=== PATIENT | female | born 1960 | race Hispanic/Latino ===

== ENCOUNTER → 2017-04-18 | Outpatient (CLI) | payer MEDICARE ==
[~2017-04-18] MED LIST: ALLO100T PO; BISA5TAB12 PO; CHOL200074 PO; CLON0.3T PO; CYCL100C8 PO; ESOM40CA PO; ESTR0.452 PO; FERR325T22 PO; GABA-529 PO; GLIP10TA9 PO; HYDR200T4 PO; INSU100V12 SQ; LABE200T PO; LACT10SO9 PO; LINA290C PO; LISI-613 PO; NIFE30TA98 PO; PRED5TAB PO; ROSU5TAB PO
== END | disposition home or self-care (01) ==
LOC: RAH 08:46
PROVIDERS: ATTEND Internal Medicine Gastroenterology
DX: R13.12 Dysphagia, oropharyngeal phase (principal); R63.3 Feeding difficulties
CPT/HCPCS: G8996; G8997; G8998; 74230; 92611

== ENCOUNTER → 2017-06-07 | Outpatient (CLI) | payer MEDICARE ==
[~2017-06-07] MED LIST changes: -LABE200T PO; +LABE200T5 PO
[2017-06-07 11:14] LABS: BASOPHILS % (AUTO) 0.6 % (0.0-5.0); EOSINOPHILS % (AUTO) 1.7 % (0.0-8.0); HEMATOCRIT 28.4 % (36-48); LYMPHOCYTES % (AUTO) 26.6 % (21.0-51.0); MEAN CORPUSCULAR HEMOGLOBIN 32.9 pg (27.0-33.0); MEAN CORPUSCULAR HGB CONC 34.2 g/dL (32.0-36.0); MEAN CORPUSCULAR VOLUME 96.1 fL (79-99); MONOCYTES % (AUTO) 9.4 % (3.0-13.0); NEUTROPHILS % (AUTO) 61.7 % (40.0-77.0); PLATELET COUNT (AUTO) 300 K/uL (130-400); RED BLOOD CELL COUNT(AUTO) 2.95 MIL/uL (4.00-5.50); RED CELL DISTRIBUTION WIDTH 14.8 % (11.0-15.5)
[2017-06-07 11:23] LABS: ALBUMIN 2.7 g/dL (3.5-5.0); BILIRUBIN,TOTAL 0.2 mg/dL (0.2-1.0); CREATININE 1.7 mg/dL (0.5-1.5); POTASSIUM 3.8 mmol/L (3.5-5.1); TOTAL PROTEIN, SERUM 7.2 g/dL (6.0-8.3)
== END | disposition home or self-care (01) ==
LOC: RAH 10:29
PROVIDERS: ATTEND Internal Medicine
DX: R10.13 Epigastric pain (principal); R14.0 Abdominal distension (gaseous)
CPT/HCPCS: 36415; 78264; 80053; 82150; 83690; 85025; A9541

== ENCOUNTER 2017-07-21 01:34 | Inpatient (IN) | payer MEDICARE ==
[~2017-07-21] VITALS: Ht 152.4 cm; Wt 65.3 kg
[~2017-07-21 01:34] MED LIST changes: -CHOL200074 PO; -CLON0.3T PO; -ESTR0.452 PO; -LABE200T5 PO
[2017-07-21 02:01] LABS: BILIRUBIN,URINE NEGATIVE (NEGATIVE); COLOR,URINE YELLOW (YELLOW); GLUCOSE, URINE (UA) NEGATIVE (NEGATIVE); KETONES,URINE NEGATIVE (NEGATIVE); LEUKOCYTE ESTERASE ,URINE LARGE (NEGATIVE); NITRATE,URINE NEGATIVE (NEGATIVE); OCCULT BLOOD,URINE MODERATE (NEGATIVE); PH,URINE 6.5 (5.0-8.0); PROTEIN,URINE 100 (NEGATIVE); UROBILINOGEN,URINE 0.2 mg/dL (0.2-1.0)
[2017-07-21 02:02] LABS: APPEARANCE,URINE HAZY (CLEAR)
[2017-07-21 02:14] LABS: BACTERIA,URINE Moderate /HPF (None Seen); WBC,URINE TNTC /HPF (0-1)
[2017-07-21 02:41] LABS: BASOPHILS % (AUTO) 0.4 % (0.0-5.0); HEMATOCRIT 29.1 % (36-48); LYMPHOCYTES % (AUTO) 36.5 % (21.0-51.0); MEAN CORPUSCULAR HEMOGLOBIN 33.8 pg (27.0-33.0); MEAN CORPUSCULAR HGB CONC 34.4 g/dL (32.0-36.0); MEAN CORPUSCULAR VOLUME 98.3 fL (79-99); NEUTROPHILS % (AUTO) 54.1 % (40.0-77.0); NUCLEATED RED BLOOD CELLS 0.1 % (0.0-0.19); PLATELET COUNT (AUTO) 188 K/uL (130-400); RED BLOOD CELL COUNT(AUTO) 2.96 MIL/uL (4.00-5.50); RED CELL DISTRIBUTION WIDTH 14.9 % (11.0-15.5); WHITE BLOOD COUNT (AUTO) 7.3 K/uL (4.8-10.8)
[2017-07-21 02:54] LABS: ALBUMIN 2.7 g/dL (3.5-5.0); BILIRUBIN,TOTAL 0.3 mg/dL (0.2-1.0); CREATININE 2.3 mg/dL (0.5-1.5); TOTAL PROTEIN, SERUM 6.9 g/dL (6.0-8.3)
[2017-07-21] MEDS ORDERED: SODIUM CHLORIDE 0.9% 1000ML 1,000 ML IV ONE (03:55)
[2017-07-21] MEDS ORDERED: LEVOFLOXACIN 500 MG/D5W 100 ML 100 ML ONE (03:56)
[2017-07-21] MEDS ORDERED: DEXTROSE 50%-WATER 50 ML DISP.SYRIN IV PRN (05:15)
[2017-07-21] MEDS ORDERED: GLUCAGON 1MG KIT 1 MG ML IM PRN (05:15)
[2017-07-21 05:55] VITALS: BP 205/96
[2017-07-21] MEDS: SODIUM CHLORIDE 0.9% 1000ML 1,000 ML IV SCH ×3 (06:37→23:19)
[2017-07-21] MEDS: HYDRALAZINE HCL 20 MG/ML VIAL IV PRN (06:38)
[2017-07-21] MEDS: INSULIN R PO SS1 SQ SCH ×4 (06:46→21:00)
[2017-07-21 07:00] VITALS: BP 178/75
[2017-07-21] MEDS: PANTOPRAZOLE SODIUM 40 MG TABLET.DR PO SCH (09:07)
[2017-07-21] MEDS: ENOXAPARIN SODIUM 30 MG/0.3 ML SQ SCH (09:09)
[2017-07-21 11:00] VITALS: BP 172/91
[2017-07-21] MEDS: CLONIDINE HCL 0.1 MG TABLET PO PRN (13:42)
[2017-07-21] MEDS: LABETALOL HCL 200 MG TABLET PO SCH ×2 (14:00→23:25)
[2017-07-21] MEDS ORDERED: CHOL200074 PO (14:09)
[2017-07-21] MEDS ORDERED: ESTR0.452 PO (14:09)
[2017-07-21] MEDS ORDERED: LABE200T5 PO (14:09)
[2017-07-21] MEDS ORDERED: CLON0.3T PO (14:09)
[2017-07-21] MEDS ORDERED: PHARMACY COMMUNICATION MISC SCH (14:30)
[2017-07-21] MEDS ORDERED: LABETALOL 20 MG/4 ML DISP.SYRIN IV SCH (14:30)
[2017-07-21] MEDS: CEFTRIAXONE SODIUM 1 GM IVP SCH (15:12)
[2017-07-21 16:00] VITALS: BP 183/95
[2017-07-21] MEDS: LABETALOL HCL 5 MG/ML 20ML VIAL IV PRN (18:12)
[2017-07-21 20:13] VITALS: BP 170/94
[2017-07-21] MEDS: CYCLOSPORINE, MODIFIED 25 MG CAPSULE PO SCH (23:19)
[2017-07-21] MEDS: GABAPENTIN 100 MG CAPSULE PO SCH (23:20)
[2017-07-21] MEDS: ALLOPURINOL 100 MG TABLET PO SCH (23:20)
[2017-07-21] MEDS: HYDROXYCHLOROQUINE SULFATE 200 MG TAB PO SCH (23:21)
[2017-07-21] MEDS: CLONIDINE HCL 0.3 MG TABLET PO SCH (23:22)
[2017-07-21] MEDS: PREDNISONE 5 MG TABLET PO SCH (23:22)
[2017-07-22] VITALS (7 sets, daily range): BP systolic 128–204; BP diastolic 70–104
[2017-07-22] MEDS: LABETALOL HCL 5 MG/ML 20ML VIAL IV PRN (01:14)
[2017-07-22] MEDS: ACETAMINOPHEN 325 MG TAB PO PRN (01:15)
[2017-07-22] MEDS: HYDRALAZINE HCL 20 MG/ML VIAL IV PRN (02:43)
[2017-07-22] MEDS: GLIPIZIDE 5 MG TABLET PO SCH ×2 (06:10→15:10)
[2017-07-22] MEDS: INSULIN R PO SS1 SQ SCH ×4 (06:10→21:00)
[2017-07-22] MEDS: LEVOFLOXACIN 500 MG/D5W 100 ML 100 ML IV SCH (06:10)
[2017-07-22] MEDS ORDERED: HYDRALAZINE HCL 20 MG/ML VIAL IV PRN (06:45)
[2017-07-22 07:04] LABS: HEMATOCRIT 29.9 % (36-48); MEAN CORPUSCULAR HEMOGLOBIN 33.4 pg (27.0-33.0); MEAN CORPUSCULAR HGB CONC 34.3 g/dL (32.0-36.0); MEAN CORPUSCULAR VOLUME 97.4 fL (79-99); PLATELET COUNT (AUTO) 205 K/uL (130-400); RED BLOOD CELL COUNT(AUTO) 3.07 MIL/uL (4.00-5.50); RED CELL DISTRIBUTION WIDTH 15.2 % (11.0-15.5); WHITE BLOOD COUNT (AUTO) 8.5 K/uL (4.8-10.8)
[2017-07-22 07:23] LABS: CREATININE 1.8 mg/dL (0.5-1.5); POTASSIUM 4.1 mmol/L (3.5-5.1)
[2017-07-22 07:38] LABS: CREATINE KINASE MB 1.1 ng/mL (0.5-3.6); TROPONIN I 0.04 ng/mL (0.00-0.06)
[2017-07-22] MEDS: CHOLECALCIFEROL 2000 UNIT PO SCH (09:00)
[2017-07-22] MEDS: LACTULOSE 20 GM/30 ML UDCUP PO SCH (09:00)
[2017-07-22] MEDS: ALLOPURINOL 100 MG TABLET PO SCH ×2 (09:28→21:30)
[2017-07-22] MEDS: CLONIDINE HCL 0.3 MG TABLET PO SCH ×2 (09:28→21:30)
[2017-07-22] MEDS: HYDROXYCHLOROQUINE SULFATE 200 MG TAB PO SCH ×2 (09:29→21:27)
[2017-07-22] MEDS: PREDNISONE 5 MG TABLET PO SCH ×2 (09:29→21:27)
[2017-07-22] MEDS: ENOXAPARIN SODIUM 30 MG/0.3 ML SQ SCH (09:30)
[2017-07-22] MEDS: PANTOPRAZOLE SODIUM 40 MG TABLET.DR PO SCH (09:32)
[2017-07-22] MEDS: LABETALOL HCL 200 MG TABLET PO SCH ×3 (09:37→21:28)
[2017-07-22] MEDS: CYCLOSPORINE, MODIFIED 25 MG CAPSULE PO SCH ×2 (09:37→21:31)
[2017-07-22] MEDS: SODIUM CHLORIDE 0.9% 1000ML 1,000 ML IV SCH ×2 (09:39→15:16)
[2017-07-22] MEDS: CEFTRIAXONE SODIUM 1 GM IVP SCH (15:03)
[2017-07-22] MEDS ORDERED: CEFEPIME 1GM+NS 50ML 50 ML IV SCH (19:00)
[2017-07-22] MEDS: CEFEPIME HCL 1 GM VIAL IVP SCH (21:27)
[2017-07-22] MEDS: GABAPENTIN 100 MG CAPSULE PO SCH (21:28)
[2017-07-23] VITALS (7 sets, daily range): BP systolic 171–200; BP diastolic 87–97
[2017-07-23] MEDS: SODIUM CHLORIDE 0.9% 1000ML 1,000 ML IV SCH ×4 (00:29→20:23)
[2017-07-23] MEDS: LABETALOL HCL 5 MG/ML 20ML VIAL IV PRN ×3 (00:29→23:41)
[2017-07-23] MEDS: ACETAMINOPHEN 325 MG TAB PO PRN (02:44)
[2017-07-23 04:56] LABS: HEMATOCRIT 28.6 % (36-48); MEAN CORPUSCULAR HEMOGLOBIN 34.5 pg (27.0-33.0); MEAN CORPUSCULAR HGB CONC 35.2 g/dL (32.0-36.0); MEAN CORPUSCULAR VOLUME 97.9 fL (79-99); NUCLEATED RED BLOOD CELLS 0.1 % (0.0-0.19); PLATELET COUNT (AUTO) 203 K/uL (130-400); RED BLOOD CELL COUNT(AUTO) 2.92 MIL/uL (4.00-5.50); RED CELL DISTRIBUTION WIDTH 15.5 % (11.0-15.5); WHITE BLOOD COUNT (AUTO) 7.8 K/uL (4.8-10.8)
[2017-07-23 05:12] LABS: CREATININE 1.8 mg/dL (0.5-1.5); MAGNESIUM 1.6 mg/dL (1.80-2.40); PHOSPHORUS 3.7 mg/dL (2.5-4.9)
[2017-07-23] MEDS: INSULIN R PO SS1 SQ SCH ×4 (06:58→21:05)
[2017-07-23] MEDS: CYCLOSPORINE, MODIFIED 25 MG CAPSULE PO SCH ×2 (08:41→20:21)
[2017-07-23] MEDS: ENOXAPARIN SODIUM 30 MG/0.3 ML SQ SCH (08:41)
[2017-07-23] MEDS: HYDROXYCHLOROQUINE SULFATE 200 MG TAB PO SCH ×2 (08:42→20:23)
[2017-07-23] MEDS: GLIPIZIDE 5 MG TABLET PO SCH ×2 (08:42→15:59)
[2017-07-23] MEDS: ALLOPURINOL 100 MG TABLET PO SCH ×2 (08:42→20:23)
[2017-07-23] MEDS: CLONIDINE HCL 0.3 MG TABLET PO SCH ×2 (08:42→20:23)
[2017-07-23] MEDS: PANTOPRAZOLE SODIUM 40 MG TABLET.DR PO SCH (08:42)
[2017-07-23] MEDS: LABETALOL HCL 200 MG TABLET PO SCH ×3 (08:43→20:22)
[2017-07-23] MEDS: PREDNISONE 5 MG TABLET PO SCH ×2 (08:43→20:23)
[2017-07-23] MEDS: LACTULOSE 20 GM/30 ML UDCUP PO SCH (08:44)
[2017-07-23] MEDS: CHOLECALCIFEROL 2000 UNIT PO SCH (08:44)
[2017-07-23] MEDS: CEFEPIME HCL 1 GM VIAL IVP SCH ×2 (08:55→20:20)
[2017-07-23] MEDS: CLONIDINE HCL 0.1 MG TABLET PO PRN (12:39)
[2017-07-23] MEDS ORDERED: MAGNESIUM 2GM PREMIX 50ML 50 ML IV SCH (19:30)
[2017-07-23] MEDS: GABAPENTIN 100 MG CAPSULE PO SCH (20:22)
[2017-07-24 03:22] VITALS: BP 187/88
[2017-07-24] MEDS: CLONIDINE HCL 0.1 MG TABLET PO PRN (03:51)
[2017-07-24] MEDS: SODIUM CHLORIDE 0.9% 1000ML 1,000 ML IV SCH (04:33)
[2017-07-24] MEDS: LEVOFLOXACIN 500 MG/D5W 100 ML 100 ML IV SCH (04:33)
[2017-07-24 05:30] LABS: HEMATOCRIT 29.1 % (36-48); MEAN CORPUSCULAR HEMOGLOBIN 33.2 pg (27.0-33.0); MEAN CORPUSCULAR HGB CONC 34.1 g/dL (32.0-36.0); MEAN CORPUSCULAR VOLUME 97.5 fL (79-99); PLATELET COUNT (AUTO) 202 K/uL (130-400); RED BLOOD CELL COUNT(AUTO) 2.98 MIL/uL (4.00-5.50); RED CELL DISTRIBUTION WIDTH 15.6 % (11.0-15.5); WHITE BLOOD COUNT (AUTO) 6.7 K/uL (4.8-10.8)
[2017-07-24 06:08] LABS: CREATININE 1.9 mg/dL (0.5-1.5); MAGNESIUM 2.3 mg/dL (1.80-2.40); POTASSIUM 4.2 mmol/L (3.5-5.1)
[2017-07-24] MEDS: INSULIN R PO SS1 SQ SCH ×3 (06:10→16:30)
[2017-07-24] MEDS: CEFEPIME HCL 1 GM VIAL IVP SCH (06:27)
[2017-07-24 08:16] VITALS: BP 142/78
[2017-07-24] MEDS: LACTULOSE 20 GM/30 ML UDCUP PO SCH (09:00)
[2017-07-24] MEDS: CHOLECALCIFEROL 2000 UNIT PO SCH (09:00)
[2017-07-24] MEDS: PREDNISONE 5 MG TABLET PO SCH (09:38)
[2017-07-24] MEDS: LABETALOL HCL 200 MG TABLET PO SCH ×2 (09:39→14:05)
[2017-07-24] MEDS: ALLOPURINOL 100 MG TABLET PO SCH (09:40)
[2017-07-24] MEDS: PANTOPRAZOLE SODIUM 40 MG TABLET.DR PO SCH (09:42)
[2017-07-24] MEDS: CYCLOSPORINE, MODIFIED 25 MG CAPSULE PO SCH (09:42)
[2017-07-24] MEDS: CLONIDINE HCL 0.3 MG TABLET PO SCH ×2 (09:43→14:05)
[2017-07-24] MEDS: HYDROXYCHLOROQUINE SULFATE 200 MG TAB PO SCH (09:43)
[2017-07-24] MEDS: GLIPIZIDE 5 MG TABLET PO SCH ×2 (09:44→17:44)
[2017-07-24] MEDS: ENOXAPARIN SODIUM 30 MG/0.3 ML SQ SCH (09:45)
[2017-07-24 11:36] VITALS: BP 168/91
[2017-07-24 16:00] VITALS: BP 196/83
[2017-07-24] MEDS ORDERED: PREDNISONE 10 MG TABLET PO SCH (16:00)
== END 2017-07-24 19:30 | disposition home or self-care (01) | DRG 872 ==
LOC: EDH 01:34 → OBSVTOIN 04:29 → EDHIP 04:29 → 3DH 06:00
PROVIDERS: ADMIT Internal Medicine Pulmonary Disease; ATTEND Internal Medicine Pulmonary Disease
DX: A41.9 Sepsis, unspecified organism (principal); N39.0 Urinary tract infection, site not specified; N17.9 Acute kidney failure, unspecified; Z94.0 Kidney transplant status; E11.22 Type 2 diabetes mellitus with diabetic chronic kidney disease; E66.9 Obesity, unspecified; E86.0 Dehydration; I12.9 Hypertensive chronic kidney disease with stage 1 through stage 4 chronic kidney disease, or unspecified chronic kidney disease; N18.9 Chronic kidney disease, unspecified; Z68.28 Body mass index [BMI] 28.0-28.9, adult; Z88.0 Allergy status to penicillin; Z88.8 Allergy status to other drugs, medicaments and biological substances; Z79.4 Long term (current) use of insulin
CPT/HCPCS: 36415; 80048; 80053; 81001; 82550; 82553; 82948; 83605; 83690; 83735; 83874; 84100; 84484; 85025; 85027; 87088; 87186; 93005; A4218; J0360; J0692; J0696; J1650; J1815; J1956; J3475; J7030; J7512; J7515

== ENCOUNTER → 2018-10-30 | Outpatient (CLI) | payer MEDICARE ==
[~2018-10-30] VITALS: Ht 147.3 cm; Wt 48.5 kg
[~2018-10-30] MED LIST changes: +AMLO10TA7 PO; -BISA5TAB12 PO; +CHOL200074 PO; +CLON0.3T PO; -ESOM40CA PO; +ESTR0.452 PO; -FERR325T22 PO; +LABE200T5 PO; -LISI-613 PO; +MYCO500T5 PO; -NIFE30TA98 PO; +ONDA4TAB9 PO; +PANT40TA PO; +RENAVITE PO; -ROSU5TAB PO; +SEVE800T27 PO
[2018-10-30 09:13] LABS: BASOPHILS % (AUTO) 0.8 % (0.0-5.0); HEMATOCRIT 26.8 % (36-48); MEAN CORPUSCULAR HEMOGLOBIN 32.8 pg (27.0-33.0); MEAN CORPUSCULAR HGB CONC 32.6 g/dL (32.0-36.0); MEAN CORPUSCULAR VOLUME 100.6 fL (79-99); NEUTROPHILS % (AUTO) 56.2 % (40.0-77.0); PLATELET COUNT (AUTO) 290 K/uL (130-400); RED BLOOD CELL COUNT(AUTO) 2.66 MIL/uL (4.00-5.50); RED CELL DISTRIBUTION WIDTH 16.2 % (11.0-15.5)
[2018-10-30 09:20] VITALS: BP 139/69
[2018-10-30 09:22] LABS: CREATININE 4.3 mg/dL (0.5-1.5); POTASSIUM 4.5 mmol/L (3.5-5.1)
[2018-10-30 09:31] LABS: INR 0.93 (0.85-1.15); PARTIAL THROMBOPLASTIN TIME 25.6 SEC (26.3-35.5); PROTHROMBIN TIME 9.8 SEC (9.6-11.6)
--- NOTE | 2018-10-31 10:45 | NUR ---
ABNORMAL LABS ABNORMAL LABS REPORTED TO PANFILO SCHMITZ RBC 2.66, H/H 8.7/26.8, CREAT 4.3. PT ON DIALYSIS. NO FURTHER ORDERS GIVEN, MAY PROCEED WITH PLANNED PROCEDURE.
== END | disposition home or self-care (01) ==
LOC: EDSTATUS 08:00 → DAH 10:00
PROVIDERS: ATTEND Internal Medicine Cardiovascular Disease
DX: Z01.810 Encounter for preprocedural cardiovascular examination (principal); I34.0 Nonrheumatic mitral (valve) insufficiency; Z88.8 Allergy status to other drugs, medicaments and biological substances; Z88.1 Allergy status to other antibiotic agents; Z88.5 Allergy status to narcotic agent; Z79.4 Long term (current) use of insulin; Z79.899 Other long term (current) drug therapy
CPT/HCPCS: 36415; 71045; 80048; 85025; 85610; 85730; 93005

== ENCOUNTER → 2019-12-14 | Outpatient (CLI) | payer OTHER, MEDICARE ==
[~2019-12-14] MED LIST changes: -ALLO100T PO; +AMLO-258 PO; -AMLO10TA7 PO; -CLON0.3T PO; -GABA-529 PO; -GLIP10TA9 PO; -LINA290C PO; +ONDA-104 PO; -ONDA4TAB9 PO
== END | disposition home or self-care (01) ==
LOC: OIH 14:32
PROVIDERS: ATTEND Internal Medicine
DX: M25.862 Other specified joint disorders, left knee (principal); M25.861 Other specified joint disorders, right knee; M25.852 Other specified joint disorders, left hip; M25.851 Other specified joint disorders, right hip
CPT/HCPCS: 72100; 73521; 73560

== ENCOUNTER → 2020-11-14 | Outpatient (CLI) | payer OTHER, MEDICARE | END | disposition home or self-care (01) | LOC: SHCH 08:44 | PROVIDERS: ATTEND Internal Medicine Cardiovascular Disease | DX: I70.203 Unspecified atherosclerosis of native arteries of extremities, bilateral legs (principal) | CPT/HCPCS: 93925 ==

== ENCOUNTER → 2021-01-18 | Outpatient (CLI) | payer OTHER, MEDICARE | END | disposition home or self-care (01) | LOC: RAH 11:26 | PROVIDERS: ATTEND Internal Medicine Cardiovascular Disease | DX: M47.26 Other spondylosis with radiculopathy, lumbar region (principal); M51.27 Other intervertebral disc displacement, lumbosacral region; M48.07 Spinal stenosis, lumbosacral region | CPT/HCPCS: 72148 ==

== ENCOUNTER → 2022-07-12 | Outpatient (CLI) | payer OTHER, MEDICARE ==
[~2022-07-12] MED LIST changes: -HYDR200T4 PO; +HYDR200T75 PO; -LABE200T5 PO; +LABE200T7 PO
[2022-07-12 16:18] LABS: BASOPHILS % (AUTO) 0.1 % (0.0-5.0); EOSINOPHILS % (AUTO) 0.7 % (0.0-8.0); HEMATOCRIT 27.9 % (36-48); LYMPHOCYTES % (AUTO) 17.3 % (21.0-51.0); MEAN CORPUSCULAR HEMOGLOBIN 29.9 pg (27.0-33.0); MEAN CORPUSCULAR HGB CONC 32.3 g/dL (32.0-36.0); MEAN CORPUSCULAR VOLUME 92.7 fL (79-99); MONOCYTES % (AUTO) 5.3 % (3.0-13.0); NEUTROPHILS % (AUTO) 76.2 % (40.0-77.0); PLATELET COUNT (AUTO) 232 K/uL (130-400); RED BLOOD CELL COUNT(AUTO) 3.01 MIL/uL (4.00-5.50); RED CELL DISTRIBUTION WIDTH 17.1 % (11.0-15.5); WHITE BLOOD COUNT (AUTO) 7.2 K/uL (4.8-10.8)
[2022-07-12 16:43] LABS: ALBUMIN 3.3 g/dL (3.5-5.0); CREATININE 0.9 mg/dL (0.5-1.5); POTASSIUM 4.5 mmol/L (3.5-5.1); TOTAL PROTEIN, SERUM 8.4 g/dL (6.0-8.3)
== END | disposition home or self-care (01) ==
LOC: LAB 12:39
PROVIDERS: ATTEND Internal Medicine Cardiovascular Disease
DX: I73.9 Peripheral vascular disease, unspecified (principal); E78.00 Pure hypercholesterolemia, unspecified; M32.9 Systemic lupus erythematosus, unspecified
CPT/HCPCS: 36415; 80053; 80061; 83880; 85025

== ENCOUNTER → 2022-09-10 | Outpatient (CLI) | payer OTHER, MEDICARE ==
[2022-09-10 16:54] LABS: CREATININE 1.1 mg/dL (0.5-1.5); POTASSIUM 4.1 mmol/L (3.5-5.1)
== END | disposition home or self-care (01) ==
LOC: LAB 14:03
PROVIDERS: ATTEND Internal Medicine Cardiovascular Disease
DX: I50.42 Chronic combined systolic (congestive) and diastolic (congestive) heart failure (principal); I27.20 Pulmonary hypertension, unspecified; Z94.0 Kidney transplant status
CPT/HCPCS: 36415; 80048; 83880